=== PATIENT | male | born 1955 | race Caucasian/White ===

== ENCOUNTER 2023-02-07 07:02 | Day surgery (SDC) | payer MEDICARE ==
[~2023-02-07] VITALS: Ht 180.3 cm; Wt 112.0 kg
[2023-02-07] VITALS (7 sets, daily range): BP systolic 104–157; BP diastolic 62–95
[~2023-02-07 07:02] MED LIST: ALBU90OI INH; ANORO ELLIPTA1 EACH INH; ARNUITY ELLIP100 MCG IH; Aspir 8181 MG PO; Budeprion Xl300 MG PO; CARAC30 G2 TP; CARV6.25 PO; Crestor40 MG PO; EZET10 PO; FURO40 PO; GLIP5 PO; JARDIANCE10 MG PO; K-TAB ER20 ME2 PO; LISI20 PO; METF500C PO; NITR.4SL SL; OMEGA-3 + D SO1 EACH PO; TADA10TA PO; TIOT18 INH; VITAMIN D310 MC4 PO
--- NOTE | 2023-02-07 08:47 | NUR ---
PT BACK TO RECOVERY ROOM FROM PROCEDURE. PT ALERT AND ORIENTED. TR BAND ON R WRIST WITH 9CC OF AIR IN BAND.
--- NOTE | 2023-02-07 09:14 | NUR ---
R RADIAL SITE REASSESSED, NO HAMATOMA OR BLEEDING. PT GIVEN BREAKFAST.
--- NOTE | 2023-02-07 10:21 | NUR ---
TR BAND FULLY DEFLATED. NO BLEEDING OR HEMATOMA NOTED. FAMILY AT BEDSIDE.
[2023-02-07] MEDS ORDERED: CLOP75 PO (10:28)
--- NOTE | 2023-02-07 11:00 | NUR ---
PT DRESSED, VERBALIZE D/C INSTRUCTIONS. IV D/C CATHETER INTACT. DOT CLOTH DRESSING TO R RADIAL SITE. NO SWELLING OR HEMATOMA. PT WHEELED OUT TO SON.
== END 2023-02-07 12:45 | disposition home or self-care (01) ==
LOC: MHTC 07:02
DX: I25.10 Atherosclerotic heart disease of native coronary artery without angina pectoris (principal); I25.82 Chronic total occlusion of coronary artery; T82.855A Stenosis of coronary artery stent, initial encounter; Y71.8 Miscellaneous cardiovascular devices associated with adverse incidents, not elsewhere classified; I13.10 Hypertensive heart and chronic kidney disease without heart failure, with stage 1 through stage 4 chronic kidney disease, or unspecified chronic kidney disease; I50.32 Chronic diastolic (congestive) heart failure; E11.22 Type 2 diabetes mellitus with diabetic chronic kidney disease; N18.9 Chronic kidney disease, unspecified; G47.33 Obstructive sleep apnea (adult) (pediatric); E78.5 Hyperlipidemia, unspecified; E66.9 Obesity, unspecified; Z68.34 Body mass index [BMI] 34.0-34.9, adult; Z88.0 Allergy status to penicillin; Z88.8 Allergy status to other drugs, medicaments and biological substances; Z88.1 Allergy status to other antibiotic agents; Z79.82 Long term (current) use of aspirin; Z79.899 Other long term (current) drug therapy
CPT/HCPCS: 76937; 93454; 99152; 99153; A9270; C1769; C1887; C1894; J2250; J3010; J7030; J7050; Q9967

== ENCOUNTER 2024-06-11 10:28 | Emergency (ER) | payer MEDICARE ==
[~2024-06-11] VITALS: Ht 182.9 cm; Wt 108.9 kg
[~2024-06-11 10:28] MED LIST changes: +BREO ELLIPTA 11 EAC1 INH; +CLOP75 PO
[2024-06-11 11:15] VITALS: BP 142/82
[2024-06-11 11:42] LABS: Source, Urine Clean Catch
[2024-06-11 11:51] LABS: BASOPHILS ABSOLUTE AUTO 0.05 K/mm3 (0.00-0.23); BASOPHILS PERCENT AUTO 1 % (0-2); EOSINOPHILS PERCENT AUTO 1 % (0-6); Hematocrit 46.7 % (37.0-53.0); Hemoglobin 15.5 g/dL (13.5-17.5); IMMATURE GRAN ABSOLUTE AUTO 0.05 K/mm3 (0.00-0.10); IMMATURE GRAN PERCENT AUTO 1 % (0-1); LYMPHOCYTES ABSOLUTE AUTO 1.36 K/mm3 (0.84-5.20); LYMPHOCYTES PERCENT AUTO 13 % (21-46); MONOCYTES PERCENT AUTO 7 % (4-13); Mean Corpuscular HGB 29.2 pg (26.0-34.0); Mean Corpuscular HGB Conc 33.2 g/dL (31.5-36.5); Mean Corpuscular Volume 88 fL (80-100); Mean Platelet Volume 9.6 fL (9.1-12.4); NEUTROPHILS ABSOLUTE AUTO 8.47 K/mm3 (1.96-9.15); NEUTROPHILS PERCENT AUTO 78 % (41-73); Platelet Count 183 K/mm3 (150-400); RDW Coefficient Variation 14.3 % (11.7-14.2); RDW Standard Deviation 46.3 fL (35.1-46.3); Red Blood Cell Count 5.31 M/mm3 (4.30-5.90); White Blood Cell Count 10.83 K/mm3 (4.00-11.30)
[2024-06-11 11:55] LABS: Appearance, Urine Bloody (Clear); Bilirubin, Urine Neg (Neg); Blood, Urine 5+ (Neg); Color, Urine Red (P-Yellow); Glucose Qualitative, Urine 4+ (Neg); Ketones, Urine Neg (Neg); Leukocyte Esterase, Urine 2+ (Neg); Nitrite, Urine Neg (Neg); Protein, Urine 3+ (Neg); Specific Gravity, Urine 1.005 (1.003-1.022); Urobilinogen, Urine NORM (Normal)
[2024-06-11 12:04] LABS: Bacteria Few /hpf; Red Blood Cells, Urine TNTC /hpf (0-2); Squamous Epithelial Cells Few /hpf (Few)
[2024-06-11 12:16] LABS: Albumin, Blood 3.5 g/dL (3.4-5.0); Albumin/Globulin Ratio 1.1 (0.8-1.8); Bilirubin, Total 0.5 mg/dL (0.1-1.0); Bun/Creatinine Ratio 12.6 (12.0-20.0); Calcium, Blood 8.5 mg/dL (8.5-10.1); Creatinine, Blood 1.19 mg/dL (0.60-1.20); Globulin, Blood 3.2 g/dL (2.2-4.0); Potassium, Blood 4.1 mmol/L (3.5-5.5); Total Protein, Blood 6.7 g/dL (6.4-8.2)
[2024-06-11] MEDS ORDERED: Ciprofloxacin 500 MG Tab PO ONE (15:05)
[2024-06-11] MEDS ORDERED: CIPR500 PO (16:12)
== END 2024-06-11 17:08 | disposition home or self-care (01) ==
LOC: ER 10:28
PROVIDERS: Physician Assistant
DX: N30.91 Cystitis, unspecified with hematuria (principal); N39.0 Urinary tract infection, site not specified; I12.9 Hypertensive chronic kidney disease with stage 1 through stage 4 chronic kidney disease, or unspecified chronic kidney disease; E11.22 Type 2 diabetes mellitus with diabetic chronic kidney disease; N18.9 Chronic kidney disease, unspecified; J44.9 Chronic obstructive pulmonary disease, unspecified; Z88.1 Allergy status to other antibiotic agents; Z88.8 Allergy status to other drugs, medicaments and biological substances; Z88.0 Allergy status to penicillin; Z79.899 Other long term (current) drug therapy; Z79.84 Long term (current) use of oral hypoglycemic drugs; Z79.51 Long term (current) use of inhaled steroids; Z79.82 Long term (current) use of aspirin; Z51.81 Encounter for therapeutic drug level monitoring
CPT/HCPCS: 51798; 74177; 80053; 81001; 85025; 87086; 99284-25; A9270; Q9967